=== PATIENT | female | born 1975 ===

== ENCOUNTER → 2021-04-14 | Outpatient (CLI) | payer OTHER ==
[~2021-04-14] MED LIST: ALLEGRA ALLERG180 MG PO; BUSPAR 5MG TABLE5 MG PO; ECOTRIN81 MG PO; IBUPROFEN600 MG PO; MIRALAX17 GM PO; NORCO 5-325 TA1 EACH PO; PROZAC40 MG PO; ZANTAC300 MG PO
== END ==
LOC: HEART CORB 14:30
DX: I10 Essential (primary) hypertension (principal); R60.0 Localized edema; R06.02 Shortness of breath; I08.3 Combined rheumatic disorders of mitral, aortic and tricuspid valves; I08.8 Other rheumatic multiple valve diseases
CPT/HCPCS: 93306

== ENCOUNTER 2022-07-24 00:01 | Emergency (ER) | payer OTHER | END 2022-07-24 01:20 | disposition home or self-care (01) | LOC: ER1 00:01 | DX: S83.92XA Sprain of unspecified site of left knee, initial encounter (principal); I10 Essential (primary) hypertension; X50.9XXA Other and unspecified overexertion or strenuous movements or postures, initial encounter; Y92.009 Unspecified place in unspecified non-institutional (private) residence as the place of occurrence of the external cause | CPT/HCPCS: 73564; 99283; J1885 ==